=== PATIENT | male | born 1965 | race Caucasian/White ===

== ENCOUNTER → 2016-08-03 | Outpatient (CLI) | payer OTHER ==
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
== END | disposition home or self-care (01) ==
LOC: C.RAD1850 14:06
PROVIDERS: ATTEND Nurse Practitioner Family
DX: M54.5 Low back pain (principal); V89.2XXA Person injured in unspecified motor-vehicle accident, traffic, initial encounter

== ENCOUNTER → 2016-08-03 | Outpatient (CLI) | payer OTHER ==
[2016-08-03 15:09] LABS: BASO % 0.9 %; BASO ABS # 0.06 K/uL (0-0.2); EOS % 1.9 %; HEMATOCRIT 39.5 % (42-52); IG% 0.1 %; LYMPH % 39.1 %; MEAN CELL VOLUME 86.4 fL (80-100); MEAN CORPUSCULAR HEMOGLOBIN 30.2 pg (25-34); MEAN PLATELET VOLUME 10.1 fL (7.4-10.4); MONO % 7.4 %; NEUT % 50.6 %; PLATELET COUNT 278 K/uL (130-400); RED BLOOD COUNT 4.57 M/uL (4.7-6.1); WHITE BLOOD COUNT 6.91 K/uL (4.8-10.8)
[2016-08-03 16:15] LABS: COMPLETE YES; MEAN CORPUSCULAR HGB CONC 34.9 g/dl (32-36)
== END | disposition home or self-care (01) ==
LOC: C.LABSPEC 15:02 → C.MNPGOH 15:04
PROVIDERS: ATTEND Nurse Practitioner Family
DX: R10.9 Unspecified abdominal pain (principal)

== ENCOUNTER → 2016-08-03 | Outpatient (CLI) | payer OTHER ==
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
== END | disposition home or self-care (01) ==
LOC: C.CTS 15:07
PROVIDERS: ATTEND Nurse Practitioner Family
DX: S27.329A Contusion of lung, unspecified, initial encounter (principal); V89.2XXA Person injured in unspecified motor-vehicle accident, traffic, initial encounter; R06.02 Shortness of breath; R10.31 Right lower quadrant pain